=== PATIENT | male | born 1970 | race Asian ===

== ENCOUNTER 2025-05-26 14:00 | Emergency (ER) | payer BC, SELFPAY ==
[2025-05-26 14:05] VITALS: BP 123/75
[2025-05-26 14:09] VITALS: BMI 27.1
--- NOTE | 2025-05-26 14:31 | ED.GENMED ---
History of Present Illness
General
Chief Complaint: Dizziness
Source: patient
Exam Limitations: none
Time Seen by Provider: 05/26/25 14:17
History of Present Illness
History of Present Illness:
See MDM
Past History
Past History
ED Past Medical History: NIDDM
ED Past Surgical History: None
Social History
Tobacco: Non-smoker
Alcohol: None
Phy Exam
Physical Exam
Physical Exam:
See MDM
Course
Orders/Labs/Results
Orders:
Orders
05/26/25 14:09
EKG [Electrocardiogram (*1)] Urgent
Reason for Study: Chest Pain
EKG- Treatment ONCE
05/26/25 14:15
Complete Blood Count/With Diff Urgent
Comprehensive Metabolic Panel Urgent
Troponin I Urgent
05/26/25 14:28
0.9% Sodium Chloride 1000 ml [Nss] 1,000 ml IV BOLUS
Abnormal Lab Results
05/26/25
14:15
Absolute Neuts (auto) 8.2 H 10^3/uL
(1.4-6.5)
Absolute Monos (auto) 0.7 H 10^3/uL
(0.1-0.6)
Neutrophils % 79.1 H %
(42.2-75.2)
Lymphocytes % 12.4 L %
(20.5-51.1)
Glucose 166 H mg/dl
(70-99)
05/26/25 14:15
05/26/25 14:15
Vital Signs
Initial and Last Documented VS:
Initial Vital Signs
Pulse Resp Pulse Ox
82 18 97
05/26/25 14:02 05/26/25 14:02 05/26/25 14:02
Last Documented Vital Signs
Pulse Resp Pulse Ox
82 18 97
05/26/25 14:02 05/26/25 14:02 05/26/25 14:35
MDM/Problems Addressed
Differential Diagnosis Includes:
Note:
CHIEF COMPLAINT(S)
Feeling dizzy and lightheaded with near syncope.
HISTORY OF PRESENT ILLNESS
The patient is a 54-year-old male who experienced a sensation of dizziness and lightheadedness while at work. He reported a near-syncopal episode, wherein he felt like he might pass out but did not completely lose consciousness. To manage his
symptoms, he went to the bathroom, sat down, and the sensation persisted for a few minutes before resolving. The patient remained conscious throughout this episode. Following the incident, colleagues called for medical assistance, which led to an
on-site EKG. The patient expressed concern about potentially fainting at work.
The EKG revealed findings of a first-degree atrioventricular block, which was explained to the patient as a benign condition that is not related to his current symptoms. The patients symptoms were discussed as likely being related to a vasovagal
reaction, potentially triggered by positional changes, which can momentarily reduce cerebral perfusion.
The patient has been on Ozempic for approximately three years for diabetic control. Despite its use, the patient has not experienced any weight loss associated with the medication; however, it has successfully managed his diabetes. There was also
mention of possible dehydration, as observed by dry lips, which might contribute to his symptoms.
EXTERNAL RECORDS REVIEWED
EKG performed by EMS indicating first-degree AV block.
CHRONIC MEDICAL CONDITIONS SIGNIFICANTLY AFFECTING CARE
Diabetes mellitus, currently well-controlled with Ozempic.
MEDICATIONS
Ozempic for diabetes mellitus control.
REVIEW OF SYSTEMS
- Cardiovascular: Lightheadedness, no chest pain, no palpitations.
- Neurological: Dizziness, near syncope, but no complete loss of consciousness.
- Hydration: Observed dry lips, possible dehydration.
PHYSICAL EXAM
General: Alert, no acute distress.
Skin: Warm, dry.
Head: Normocephalic, atraumatic
Neck: Appears supple, trachea midline.
Eyes, Ears, Nose, Mouth, and Throat: Mildly dry mucous membranes
Cardiovascular: No signs of cyanosis. Regular rate and rhythm
Respiratory: Respirations are non-labored.. Lungs clear
Abdomen: Non-distended
Musculoskeletal: No deformities
Neurological: No focal neurological deficit observed.
Psychiatric: Cooperative, appropriate mood and affect.
PROBLEM LIST
Acute:
- Dizziness and lightheadedness with near syncope.
Chronic:
- Diabetes mellitus.
PLAN
- Administer IV fluids to address possible dehydration.
- Conduct basic bloodwork to ensure no underlying issues.
- Monitor the patients condition post-rehydration and reassess symptoms.
- Educate the patient on the benign nature of his first-degree AV block and reassured him.
- Ensure the patient understands the importance of adequate fluid intake, especially while on medications like Ozempic.
DIFFERENTIAL DIAGNOSIS
The Differential Diagnosis includes, in no particular order and is not limited to:
1. Vasovagal syncope.
2. Dehydration-induced dizziness.
3. Orthostatic hypotension.
4. Benign paroxysmal positional vertigo.
5. Anxiety/Stress-induced dizziness.
6. Hypoglycemia.
7. Cardiac arrhythmia unrelated to first-degree AV block.
8. Inner ear disorder (e.g., labyrinthitis).
9. Medication side effect.
10. Hypotension secondary to medication or other causes.
My independent EKG interpretation is:
- Time of EKG: [not provided]
- Rhythm: Sinus rhythm
- Heart Rate: 80 beats per minute
- Notable Intervals: First degree AV block
- [place]yer: Normal axis
- Abnormalities: No ST segment changes or T wave inversions
SUMMARY OF ENCOUNTER
The patient was seen in the emergency department due to experiencing dizziness, lightheadedness, and a near-syncopal episode while at work. An on-site EKG showed a first-degree atrioventricular block, which was discussed with the patient as benign
and unrelated to his symptoms. The symptoms were attributed to a possible vasovagal reaction and mild dehydration. Bloodwork was done, revealing mild hyperglycemia but no signs of diabetic ketoacidosis (DKA). The patient was educated on increasing
fluid intake, and return precautions were discussed. The patient showed symptom improvement and felt comfortable to return home.
DISPOSITION
Discharge
PLAN
- Increase fluid intake to address signs of mild dehydration.
- Ensure proper monitoring of blood sugar levels.
- Follow up with primary care physician to evaluate and manage any underlying issues and reassess diabetes management.
PATIENT EDUCATION AND COUNSELING
The patient was educated about the benign nature of his first-degree AV block and the importance of adequate hydration, especially given his medication for diabetes. They were informed about potential causes for his symptoms, such as mild
dehydration and orthostasis, and instructed on return precautions.
FOLLOW-UP INSTRUCTIONS
The patient has been advised to follow up with his primary care physician soon to assess and manage his diabetes and overall health.
MEDICAL DECISION MAKING
-Complexity of Data Reviewed: Chronic conditions affecting care include diabetes mellitus. The differential diagnosis considered included:
1. Vasovagal syncope.
2. Dehydration-induced dizziness.
3. Orthostatic hypotension.
4. Benign paroxysmal positional vertigo.
5. Anxiety/Stress-induced dizziness.
6. Hypoglycemia.
7. Cardiac arrhythmia unrelated to first-degree AV block.
8. Inner ear disorder (e.g., labyrinthitis).
9. Medication side effect.
10. Hypotension secondary to medication or other causes.
-Data:
Category 1
Non-emergency department records: Review of the patients outpatient EKG indicating a first-degree AV block.
Category 2
My independent interpretation of the EKG: Sinus rhythm with a first-degree AV block.
-Risk:
Consideration of Admission/Observation: Escalation of care, including admission/observation, was considered given the complexity and risk of the patients presenting complaint, exam findings, and/or their underlying comorbidities. However,
ultimately, I feel the patient is safe for outpatient management with close follow-up. Reasoning: Work-up reassuring, does not reveal any acute life/organ-threatening processes, patients symptoms well controlled upon reevaluation, reexamination is
reassuring, vitals are stable, patient agreeable with discharge, reliable for follow-up.
DIAGNOSIS
R42 - Dizziness and giddiness
E11.9 - Type 2 diabetes mellitus without complications
*Pulse Oximetry
SaO2: 97
Oxygen Mode of Delivery: Room air
Patient hypoxic: no
*Critical Care Note
Total Time (30-74mins, 75-104mins- exclusive of procedures): Not Applicable
ED Attending Note
-
Portions of this chart may have been created with voice recognition software.� Occasional wrong word or��sound alike� substitutions may have occurred due to the inherent limitations of voice recognition software.
Discharge Plan
Departure
Patient Disposition: Home (Routine Discharge)
Date of Disposition: 05/26/25
Time of Disposition: 15:09
Patient with high blood pressure during this ER visit?: No
Discharge Problem:
Near syncope, Orthostasis
Instructions: Dizziness
Activity Restrictions/Additional Instructions:
Please return for any worsening symptoms.
You may return at any time if you have further concerns.
Please follow up with your doctor at the first available appointment, preferably this week.
Thank you for choosing [facility].
Discharge Date and Time
Print Language: BRAZILIAN
[2025-05-26] MEDS: NSS 1000 IV (14:32)
[2025-05-26 14:35] LABS: Hematocrit 44.6 % (39.0-52.0); Hemoglobin 15.1 g/dL (13.0-18.0); Mean Corp Hgb Conc. 33.9 g/dL (33.0-37.0); Mean Corpuscular Volume 86.4 fL (80.0-94.0); Nucleated Red Blood Cells % 0 % (-); Platelet Count 238 10^3/uL (130-400); Red Cell Dist. Width 12.7 % (11.5-14.5)
[2025-05-26 14:43] LABS: ALT (SGPT) 35 U/L (0-50); AST (SGOT) 27 U/L (17-59); Albumin 5.0 g/dl (3.5-5.0); Alkaline Phosphatase 56 U/L (38-126); Blood Urea Nitrogen 18 mg/dl (9-20); Calcium 9.6 mg/dl (8.4-10.2); Carbon Dioxide 27 mmol/L (22-30); Chloride 101 mmol/L (98-107); Estimated Creatinine Clearance 90 ml/min; Glucose 166 mg/dl (70-99); Potassium 3.7 mmol/L (3.5-5.1); Sodium 138 mmol/L (135-145); Total Protein 7.8 g/dl (6.3-8.2); eGFR > 60.00
[2025-05-26 14:53] LABS: Troponin I < 0.012 ng/ml
[2025-05-26 15:00] VITALS: BP 110/66
== END 2025-05-26 15:57 | disposition home or self-care (01) ==
LOC: EMR 14:00
PROVIDERS: EMERGENCY PHYSICIAN Student in an Organized Health Care Education/Training Program; FAMILY PHYSICIAN Family Medicine
DX: R55 Syncope and collapse (principal); R42 Dizziness and giddiness; E11.9 Type 2 diabetes mellitus without complications; Z79.85 Long-term (current) use of injectable non-insulin antidiabetic drugs
CPT/HCPCS: 96360; 99284; 80053; 84484; 85025; 93005